=== PATIENT | male | born 1950 | race Caucasian/White ===

== ENCOUNTER → 2018-04-04 | Outpatient (CLI) | payer MEDICARE ==
[~2018-04-04] MED LIST: CALCIUM 500 +1 EAC2 PO; MULTIVITAMIN PO; POTASSIUM PO; ZYRTEC10 MG PO
--- NOTE | 2018-04-04 11:15 | Diagnostic Imaging Report ---
PROCEDURE: Frontal and lateral views of the chest. COMPARISON: Chest x-ray 03/23/2014. INDICATIONS: COUGH CONGESTION FINDINGS: Lines/tubes: None. Lungs: The lungs are well inflated. Mild bilateral peribronchial cuffing. There is no evidence of pneumonia or pulmonary edema. Pleura: There is no pleural effusion or pneumothorax. Heart and mediastinum: The heart and the mediastinum are normal. Bones: No acute bony abnormality. IMPRESSION: Mild bilateral peribronchial cuffing, likely viral etiology or reactive airway. Dictated by: Deep Gilliam M.D. on 04/04/2018 at 11:17 Electronically approved by: Deep Gilliam M.D. on 04/04/2018 at 11:17
== END ==
LOC: RAD 10:40
DX: R05 Cough (principal)
CPT/HCPCS: 71046